=== PATIENT | female | born 1970 | race Caucasian/White ===

== ENCOUNTER 2021-10-23 14:16 | Emergency (ER) | payer OTHER ==
[2021-10-23] MEDS ORDERED: IBUPROFEN 600 MG TABLET (FP) PO ONE ×2 (14:26→14:36)
[2021-10-23 14:43] VITALS: BP 123/65; PULSE 98; RESP 18; TEMP 97.8; BMI 22.7
== END 2021-10-23 15:10 | disposition home or self-care (01) ==
LOC: FER 14:16
DX: S49.91XA Unspecified injury of right shoulder and upper arm, initial encounter (principal); Y00.XXXA Assault by blunt object, initial encounter
CPT/HCPCS: 73030-TC-RT-FY; 99283-25

== ENCOUNTER 2023-04-04 04:25 | Day surgery (SDC) | payer OTHER ==
[2023-04-01 11:07] VITALS: BMI 24.3
[2023-04-04 06:27] VITALS: RESP 18
[2023-04-04] MEDS ORDERED: KETOROLAC TROMETHAMINE 30 MG/1 ML VIAL ONE (07:49)
[2023-04-04] MEDS ORDERED: LIDOCAINE HCL/PF 2% SDV 5ML VIAL ONE (07:49)
[2023-04-04] MEDS ORDERED: SUCCINYLCHOLINE CHLORIDE 200 MG/10 ML SYRINGE ONE (07:49)
[2023-04-04] MEDS ORDERED: ePHEDrine SULFATE 50 MG/1 ML AMPULE ONE (07:49)
[2023-04-04] MEDS ORDERED: METOCLOPRAMIDE HCL INJECTION 10 MG/2 ML VIAL ONE (07:49)
[2023-04-04] MEDS ORDERED: DEXAMETHASONE SOD PHOSPHATE 4 MG/1 ML VIAL ONE (07:49)
[2023-04-04] MEDS ORDERED: ONDANSETRON 4 MG/2 ML VIAL ONE (07:49)
[2023-04-04] MEDS ORDERED: PROPOFOL 40 ML ONE (07:54)
[2023-04-04] MEDS ORDERED: MIDAZOLAM HCL 2 MG/2 ML SINGLE DOSE VIAL ONE (07:54)
[2023-04-04] MEDS ORDERED: SODIUM CHLORIDE 0.9% P/F 10 ML VIAL IJ ONE (08:34)
[2023-04-04] MEDS ORDERED: ceFAZolin SODIUM 1 GM VIAL ONE (08:34)
[2023-04-04] MEDS ORDERED: GLYCOPYRROLATE 0.2 MG/1 ML VIAL ONE (08:35)
[2023-04-04] MEDS: ceFAZolin SODIUM 1 GM VIAL IVPB ONE (08:37)
[2023-04-04] MEDS ORDERED: LIDOCAINE HCL 2% JELLY 6 ML TP ONE (08:38)
[2023-04-04] MEDS ORDERED: ACETAMINOPHEN INJECTION 100 ML IVPB ONE (08:45)
[2023-04-04] MEDS ORDERED: ONDANSETRON 4 MG/2 ML VIAL IVPUSH PRN (09:15)
[2023-04-04] MEDS ORDERED: LACTATED RINGERS SOLUTION 1,000 ML IV SCH (09:15)
[2023-04-04 12:14] VITALS: BP 116/75; PULSE 58; TEMP 97.7
== END 2023-04-04 12:10 | disposition home or self-care (01) ==
LOC: JASU-SURG 04:25
PROVIDERS: ATTEND Obstetrics & Gynecology
PROC: 0UB98ZZ Excision of Uterus, Via Natural or Artificial Opening Endoscopic (ICD-10-PCS; principal; 2023-04-04 08:00)
DX: N84.0 Polyp of corpus uteri (principal)
CPT/HCPCS: 81025; 88305-TC; 88341-TC; 88342-TC; 94010; 94760; J0131

== ENCOUNTER 2023-05-16 05:18 | Day surgery (SDC) | payer OTHER ==
[2023-05-11 16:22] VITALS: BMI 23.5
[2023-05-16] MEDS ORDERED: BUPIVACAINE HCL/PF 0.5% (5MG/ML) 10 ML VIAL ONE (10:16)
[2023-05-16] MEDS ORDERED: ONDANSETRON 4 MG/2 ML VIAL IVPUSH PRN (10:52)
[2023-05-16] MEDS ORDERED: PROMETHAZINE HCL 25 MG/1 ML VIAL IVPB PRN (10:52)
[2023-05-16] MEDS ORDERED: oxyCODONE HCL 5 MG TABLET PO PRN ×2 (10:52)
[2023-05-16] MEDS ORDERED: METHYLENE BLUE 50 MG/10 ML AMPUL ONE (10:53)
[2023-05-16] MEDS ORDERED: ONDANSETRON 4 MG/2 ML VIAL ONE (10:57)
[2023-05-16] MEDS ORDERED: LIDOCAINE HCL/PF 2% SDV 5ML VIAL ONE (10:57)
[2023-05-16] MEDS ORDERED: KETOROLAC TROMETHAMINE 30 MG/1 ML VIAL ONE (10:57)
[2023-05-16] MEDS ORDERED: TRANEXAMIC ACID 1000 MG/10 ML VIAL ONE (10:57)
[2023-05-16] MEDS ORDERED: MIDAZOLAM HCL 2 MG/2 ML SINGLE DOSE VIAL ONE (10:57)
[2023-05-16] MEDS ORDERED: HYDROmorphone HCl 2 MG/ML VIAL ONE (10:57)
[2023-05-16] MEDS ORDERED: DEXAMETHASONE SOD PHOSPHATE 4 MG/1 ML VIAL ONE (10:57)
[2023-05-16] MEDS ORDERED: ROCURONIUM BROMIDE 50 MG/5 ML SYRINGE ONE (10:57)
[2023-05-16] MEDS ORDERED: PROPOFOL 20 ML ONE (10:57)
[2023-05-16] MEDS ORDERED: ceFAZolin SODIUM 1 GM VIAL ONE (10:57)
[2023-05-16] MEDS ORDERED: FENTANYL CITRATE/PF 50 MCG/ML VIAL ONE ×4 (10:57→14:53)
[2023-05-16] MEDS ORDERED: SEVOFLURANE 250 ML BTL ONE (11:09)
[2023-05-16] MEDS: ceFAZolin SODIUM 1 GM VIAL IVPB ONE (11:18)
[2023-05-16] MEDS ORDERED: GLYCOPYRROLATE 0.2 MG/1 ML VIAL ONE ×2 (11:42→13:22)
[2023-05-16] MEDS ORDERED: METOCLOPRAMIDE HCL INJECTION 10 MG/2 ML VIAL ONE (12:21)
[2023-05-16] MEDS ORDERED: NEOSTIGMINE METHYLSULFATE 0.5 MG/1 ML - 10 ML MDV ONE (13:22)
[2023-05-16] MEDS: BUPIVACAINE HCL/PF 0.5% (5MG/ML) 10 ML VIAL IJ ONE ×2 (13:44)
[2023-05-16] MEDS: LACTATED RINGERS SOLUTION 1,000 ML IV SCH (14:05)
[2023-05-16] MEDS: ACETAMINOPHEN 1000 MG/100 ML BAG IVPB ONE (14:10)
[2023-05-16] MEDS: TRANEXAMIC ACID 1000 MG/10 ML VIAL IVPUSH ONE (15:19)
[2023-05-16] MEDS: CEFAZOLIN 2 GM in DEXTROSE 5%-WATER - 100 ML IVPB ONE (15:19)
[2023-05-16] MEDS ORDERED: ACETAMINOPHEN 325 MG TABLET (FP) PO PRN (17:04)
[2023-05-16 22:28] VITALS: RESP 18
[2023-05-16] MEDS: ACETAMINOPHEN 1000 MG/100 ML BAG IVPB PRN (22:44)
[2023-05-17 06:06] VITALS: PULSE 66
[2023-05-17 07:28] LABS: BASO % 0.3 % (0-2.0); EOS % 0.1 % (0-4.5); HEMATOCRIT 33.6 % (32.4-45.2); LYMPH % 27.9 % (8-40); MCH 27.3 pg (25.7-33.7); MCHC 32.8 g/dl (32.0-36.0); MEAN CELL VOLUME 83.2 fl (80-96); MEAN PLT VOLUME 7.3 fl (7.5-11.1); MONO % 9.7 % (3.8-10.2); PLATELET COUNT 282 10^3/uL (134-434); RBC 4.03 M/mm3 (3.60-5.2); RDW 13.7 % (11.6-15.6); WHITE BLOOD COUNT 10.5 K/mm3 (4.0-10.0)
[2023-05-17 07:44] LABS: POTASSIUM 4.2 mmol/L (3.5-5.1)
[2023-05-17 07:46] LABS: BLOOD UREA NITROGEN 11.1 mg/dL (7-18); CALCIUM 8.4 mg/dL (8.5-10.1)
[2023-05-17 07:49] LABS: CREATININE 0.6 mg/dL (0.55-1.3)
[2023-05-17 07:51] LABS: TOT PROT 5.5 g/dl (6.4-8.2)
[2023-05-17 08:08] LABS: ALBUMIN 2.8 g/dl (3.4-5.0); BILIRUBIN,TOTAL 0.4 mg/dL (0.2-1)
[2023-05-17] MEDS: IBUPROFEN 600 MG TABLET (FP) PO PRN (08:36)
[2023-05-17 10:53] VITALS: BP 124/57; TEMP 97.8
== END 2023-05-17 10:15 | disposition home or self-care (01) ==
LOC: JASUSAT 05:18 → J3W 16:46 → JASUSAT 05-17 10:15
PROVIDERS: ATTEND Obstetrics & Gynecology
PROC: 0UT7FZZ Resection of Bilateral Fallopian Tubes, Via Natural or Artificial Opening With Percutaneous Endoscopic Assistance (ICD-10-PCS; 2023-05-16)
PROC: 0UT9FZZ Resection of Uterus, Via Natural or Artificial Opening With Percutaneous Endoscopic Assistance (ICD-10-PCS; principal; 2023-05-16 11:00)
DX: N85.02 Endometrial intraepithelial neoplasia [EIN] (principal); N83.8 Other noninflammatory disorders of ovary, fallopian tube and broad ligament
CPT/HCPCS: 36415; 80053; 81025; 85025; 86850; 86900; 86901; 88309-TC; 94010; 94760; J0131; Q9968